=== PATIENT | female | born 1960 | race Caucasian/White ===

== ENCOUNTER 2018-04-30 13:28 | Emergency (ER) | payer BC, MEDICARE, OTHER ==
[2018-04-30] MEDS ORDERED: NORMAL SALINE 1000 ML 1,000 ML IV ONE (14:04)
--- NOTE | 2018-04-30 14:07 | ER Document Report ---
ED Medical Screen (RME) - General Chief Complaint: Diarrhea Stated Complaint: POSSIBLE DEHYDRATION Time Seen by Provider: 04/30/18 14:03 Mode of Arrival: Ambulatory Information source: Patient TRAVEL OUTSIDE OF THE [place] IN LAST 30 DAYS: No - HPI Patient complains to provider of: diarrhea, dehydration Onset: Other - pt states she weston haad multiple episodes of diarrhea for the past 5-6 days and is now feeling weak. Feels she is dehydrated - Related Data Allergies/Adverse Reactions: pain medication name unknown Allergy (Uncoded 04/30/18 13:32) Physical Exam - Vital signs Vitals: Temp Pulse Resp BP Pulse Ox 99.0 F 79 14 130/63 H 97 04/30/18 13:37 04/30/18 13:37 04/30/18 13:37 04/30/18 13:37 04/30/18 13:37 Course - Vital Signs Vital signs: Temp Pulse Resp BP Pulse Ox 99.0 F 79 14 130/63 H 97 04/30/18 13:37 04/30/18 13:37 04/30/18 13:37 04/30/18 13:37 04/30/18 13:37
[2018-04-30 15:02] LABS: ABSOLUTE EOSINOPHILS # (AUTO) 0.1 10^3/uL (0.0-0.6); ABSOLUTE MONOCYTES (AUTO) 0.4 10^3/uL (0.1-1.4); ABSOLUTE NEUT (AUTO) 2.8 10^3/uL (1.7-8.2); BASOPHILS % (AUTO) 0.4 % (0-2); EOSINOPHILS % (AUTO) 3.2 % (0-6); HEMATOCRIT 37.7 % (36.0-47.0); HEMOGLOBIN 13.1 g/dL (12.0-15.5); LYMPHOCYTES % (AUTO) 22.1 % (13-45); MEAN CORPUSCULAR HEMOGLOBIN 32.2 pg (27.0-33.4); MEAN CORPUSCULAR HGB CONC 34.7 g/dL (32.0-36.0); MEAN CORPUSCULAR VOLUME 93 fl (80-97); MONOCYTES % (AUTO) 9.6 % (3-13); PLATELET COUNT 148 10^3/uL (150-450); RED BLOOD COUNT 4.07 10^6/uL (3.72-5.28); RED CELL DISTRIBUTION WIDTH 12.6 % (11.5-14.0); SEGMENTED NEUTROPHILS % (AUTO) 64.7 % (42-78); TOTAL CELLS COUNTED % (AUTO) 100 %; WHITE BLOOD COUNT 4.4 10^3/uL (4.0-10.5)
[2018-04-30 15:23] LABS: ALANINE AMINOTRANSFERASE 146 U/L (9-52); ALBUMIN 3.9 g/dL (3.5-5.0); ALKALINE PHOSPHATASE 116 U/L (38-126); ANION GAP 11 (5-19); ASPARTATE AMINO TRANSFERASE 180 U/L (14-36); BILIRUBIN,DIRECT 0.8 mg/dL (0.0-0.4); BILIRUBIN,TOTAL 2.2 mg/dL (0.2-1.3); BLOOD UREA NITROGEN 7 mg/dL (7-20); CALCIUM 9.1 mg/dL (8.4-10.2); CARBON DIOXIDE 26 mmol/L (22-30); CHLORIDE 100 mmol/L (98-107); GLUCOSE 121 mg/dL (75-110); POTASSIUM 4.1 mmol/L (3.6-5.0); SODIUM 137.2 mmol/L (137-145); TOTAL PROTEIN 6.7 g/dL (6.3-8.2)
[2018-04-30 16:11] VITALS: BP 131/56
--- NOTE | 2018-04-30 16:12 | ER Document Report ---
ED GI/ - General Chief Complaint: Diarrhea Stated Complaint: POSSIBLE DEHYDRATION Time Seen by Provider: 04/30/18 14:03 Mode of Arrival: Ambulatory TRAVEL OUTSIDE OF THE [place] IN LAST 30 DAYS: No - HPI Patient complains to provider of: Diarrhea - pt states she has had multiple episodes of diarrhea for the past several days and feels she mauy be dehydrdated - Related Data Allergies/Adverse Reactions: pain medication name unknown Allergy (Uncoded 04/30/18 13:32) Past Medical History - General Information source: Patient - Social History Smoking Status: Never Smoker Frequency of alcohol use: None Drug Abuse: None Family History: None Patient has suicidal ideation: No Patient has homicidal ideation: No - Past Medical History Cardiac Medical History: Reports: Hx Hypercholesterolemia, Hx Hypertension Pulmonary Medical History: Reports: Hx Asthma Renal/ Medical History: Denies: Hx Peritoneal Dialysis GI Medical History: Reports: Hx Gastroesophageal Reflux Disease Past Surgical History: Reports: Hx Abdominal Surgery - large intensine and colon removed, Hx Appendectomy, Hx Section - x1, Hx Cholecystectomy, Hx Orthopedic Surgery - right great toe Review of Systems - Review of Systems Constitutional: No symptoms reported EENT: No symptoms reported Cardiovascular: No symptoms reported Respiratory: No symptoms reported Gastrointestinal: See HPI, Diarrhea -: Yes All other systems reviewed and negative Physical Exam - Vital signs Vitals: Temp Pulse Resp BP Pulse Ox 99.0 F 79 14 130/63 H 97 04/30/18 13:37 04/30/18 13:37 04/30/18 13:37 04/30/18 13:37 04/30/18 13:37 - General General appearance: Appears well In distress: None - HEENT Mouth/Lips: Normal Mucous membranes: Normal Pharynx: Normal Neck: Normal - Respiratory Respiratory status: No respiratory distress Breath sounds: Normal - Cardiovascular Rhythm: Regular Heart sounds: Normal auscultation - Abdominal Inspection: Normal Tenderness: Nontender Course - Re-evaluation Re-evalutation: 04/30/18 16:09 pt feels much better at re-eval. Expressed desire to go home - Vital Signs Vital signs: Temp Pulse Resp BP Pulse Ox 99.0 F 79 14 130/63 H 97 04/30/18 13:37 04/30/18 13:37 04/30/18 13:37 04/30/18 13:37 04/30/18 13:37 - Laboratory Result Diagrams: 04/30/18 14:40 04/30/18 14:40 Laboratory results interpreted by me: 04/30/18 04/30/18 14:40 14:40 Plt Count 148 L Glucose 121 H Total Bilirubin 2.2 H Direct Bilirubin 0.8 H AST 180 H ALT 146 H Discharge - Discharge Clinical Impression: Diarrhea Qualifiers: Diarrhea type: unspecified type Qualified Code(s): R19.7 - Diarrhea, unspecified Condition: Stable Disposition: HOME, SELF-CARE Additional Instructions: rest, clear liquids for 24 hrs., return if worse, take meds as prescribed Prescriptions: Diphenoxylate HCl/Atrop Sulf [Lomotil 2.5 mg Tablet] 1 tab PO Q6HP PRN #30 tablet PRN Reason: Referrals: ARTURO SAEZ MD [ACTIVE STAFF] - Follow up as needed
== END 2018-04-30 16:14 | disposition home or self-care (01) ==
LOC: ER 13:28
DX: R19.7 Diarrhea, unspecified (principal); I10 Essential (primary) hypertension; J45.909 Unspecified asthma, uncomplicated; Z88.6 Allergy status to analgesic agent; Z87.19 Personal history of other diseases of the digestive system; Z90.49 Acquired absence of other specified parts of digestive tract
CPT/HCPCS: 99284; 96360; 36415; 85025; 80053; J7030